=== PATIENT | male | born 1950 | race Caucasian/White ===

== ENCOUNTER 2016-09-22 13:39 | Inpatient (IN) | payer MEDICARE, OTHER ==
[~2016-09-22] VITALS: Ht 175.3 cm; Wt 49.1 kg
[~2016-09-22 13:39] MED LIST: HCTZ; LISINOPRIL10 MG PO; PERCOCET 325 MG1 TA2 PO
[2016-09-22 14:45] LABS: HEMATOCRIT 40.7 % (42.0-52.0); HEMOGLOBIN 13.3 g/dl (13.5-18.0); MEAN CELL VOLUME 100 fl (80.0-100.0); MEAN CORPUSCULAR HEMOGLOBIN 33 pg (27.0-31.0); MEAN CORPUSCULAR HGB CONC 33 g/dl (33.0-37.0); PLATELET COUNT 298 K/mm3 (130-400); RED BLOOD COUNT 4.07 M/mm3 (4.20-5.60); WHITE BLOOD COUNT 17.6 K/mm3 (4.8-10.8)
[2016-09-22 14:46] LABS: ADD PATHOLOGY DIFF REVIEW NO
[2016-09-22 14:50] LABS: INR 1.1 (0.8-3.0); PROTHROMBIN TIME 12.3 SECONDS (9.7-12.8)
[2016-09-22 14:52] LABS: PARTIAL THROMBOPLASTIN TIME 29.3 SECONDS (26.0-37.0)
[2016-09-22 14:59] LABS: ADJUSTED CALCIUM 9.2 mg/dL (8.4-10.2); ALBUMIN 4.2 gm/dL (3.5-5.0); BILIRUBIN,TOTAL 1.1 mg/dL (0.0-1.0); CALCIUM 9.4 mg/dL (8.4-10.2); CREATININE, serum 0.5 mg/dL (0.66-1.25); POTASSIUM 4.6 mmol/L (3.4-5.0); TOTAL PROTEIN 7.4 gm/dL (6.4-8.2)
[2016-09-22 15:06] LABS: ARTERIAL BLD GAS O2 SATURATION 96.6 % (92-100); ARTERIAL BLD GAS TCO2 CT 41.4; ARTERIAL BLOOD GAS BASE EXCESS 11.8 (-2-2); ARTERIAL BLOOD GAS HCO3 39.4 meq/L (22-26); ARTERIAL BLOOD GAS PO2 87.4 mmHg (80-100); OXYHEMOGLOBIN 95.5 %
[2016-09-22 15:07] LABS: BAND 46 % (0-10); NEUTROPHILS 50 % (42.0-75.2); PLATELET ESTIMATE NORMAL (NORMAL); TOTAL CELLS COUNTED 100
[2016-09-22 15:08] LABS: ATS? YES
[2016-09-22 15:11] LABS: TROPONIN-I 0.021 ng/mL (0.000-0.034)
[2016-09-22] MEDS ORDERED: NORVASC 5MG5 MG/TAB PO (15:22)
[2016-09-22] MEDS ORDERED: LIORESAL 1010 MG/TAB PO ×2 (15:23)
[2016-09-22] MEDS ORDERED: MOBIC15 MG PO (15:24)
[2016-09-22] MEDS ORDERED: PROTONIX40 MG/Pack PO (15:31)
[2016-09-22 15:52] LABS: PH 8 (5-8); SQUAMOUS EPITHELIAL None Seen /hpf; URINE APPEARANCE Clear; URINE BACTERIA None Seen /hpf; URINE BILIRUBIN Negative (NEGATIVE); URINE BLOOD Negative (NEGATIVE); URINE COLOR Yellow; URINE GLUCOSE Negative (NEGATIVE); URINE KETONE Negative (NEGATIVE); URINE UROBILINOGEN Negative (NEGATIVE); URINE WBC 0-2 /hpf
[2016-09-22 17:13] VITALS: BP 108/57; PULSE 85; TEMP 97.9
[2016-09-22 21:30] VITALS: BP 123/47; PULSE 91; TEMP 98.2
[2016-09-23] VITALS (7 sets, daily range): BP systolic 115–138; BP diastolic 57–78; PULSE 74–100; TEMP 97.6–98.6
[2016-09-23 06:52] LABS: HEMATOCRIT 38.8 % (42.0-52.0); HEMOGLOBIN 12.7 g/dl (13.5-18.0); MEAN CELL VOLUME 100 fl (80.0-100.0); MEAN CORPUSCULAR HEMOGLOBIN 33 pg (27.0-31.0); MEAN CORPUSCULAR HGB CONC 33 g/dl (33.0-37.0); MEAN PLATELET VOLUME 10.7 fl (7.4-10.4); PLATELET COUNT 284 K/mm3 (130-400); RED BLOOD COUNT 3.87 M/mm3 (4.20-5.60); REDCELL DISTRIBUTION WIDTH-CV 12.1 % (11.5-14.5); WHITE BLOOD COUNT 15.3 K/mm3 (4.8-10.8)
[2016-09-23 07:01] LABS: ADD PATHOLOGY DIFF REVIEW NO
[2016-09-23 08:42] LABS: BAND 17 % (0-10); NEUTROPHILS 75 % (42.0-75.2); PLATELET ESTIMATE NORMAL (NORMAL); TOTAL CELLS COUNTED 100
[2016-09-24 03:01] VITALS: BP 114/60; PULSE 92; TEMP 97.4
[2016-09-24 07:59] LABS: HEMATOCRIT 38.4 % (42.0-52.0); HEMOGLOBIN 12.5 g/dl (13.5-18.0); MEAN CELL VOLUME 103 fl (80.0-100.0); MEAN CORPUSCULAR HEMOGLOBIN 33 pg (27.0-31.0); MEAN CORPUSCULAR HGB CONC 33 g/dl (33.0-37.0); MEAN PLATELET VOLUME 10.8 fl (7.4-10.4); PLATELET COUNT 262 K/mm3 (130-400); RED BLOOD COUNT 3.74 M/mm3 (4.20-5.60); REDCELL DISTRIBUTION WIDTH-CV 12.3 % (11.5-14.5); WHITE BLOOD COUNT 13.8 K/mm3 (4.8-10.8)
[2016-09-24 08:11] LABS: ADD PATHOLOGY DIFF REVIEW NO
[2016-09-24 08:30] VITALS: BP 139/68; PULSE 90; TEMP 98.1
[2016-09-24 09:34] LABS: BAND 25 % (0-10); EOSINOPHIL 1 % (0-4); HYPOCHROMIA 1+; NEUTROPHILS 66 % (42.0-75.2); PLATELET ESTIMATE NORMAL (NORMAL); TOTAL CELLS COUNTED 100
[2016-09-24 12:02] VITALS: BP 126/55; PULSE 88; TEMP 97.9
[2016-09-24 12:44] LABS: ADJUSTED CALCIUM 8.9 mg/dL (8.4-10.2); ALBUMIN 3.5 gm/dL (3.5-5.0); BILIRUBIN,TOTAL 0.6 mg/dL (0.0-1.0); CALCIUM 8.5 mg/dL (8.4-10.2); CREATININE, serum 0.48 mg/dL (0.66-1.25); PHOSPHOROUS 2.7 mg/dL (2.5-4.5); POTASSIUM 3.1 mmol/L (3.4-5.0); TOTAL PROTEIN 6.5 gm/dL (6.4-8.2)
[2016-09-24 17:30] VITALS: BP 109/58; PULSE 85; TEMP 98.7
[2016-09-24 21:05] VITALS: BP 123/68; PULSE 83; TEMP 97.6
[2016-09-25 00:12] VITALS: BP 138/59; PULSE 100
[2016-09-25 07:36] VITALS: BP 122/58; PULSE 85; TEMP 97.8
[2016-09-25 11:04] VITALS: BP 131/68; PULSE 104; TEMP 98
[2016-09-25 15:24] VITALS: BP 128/62; PULSE 88; TEMP 98.8
[2016-09-25 20:50] VITALS: BP 121/59; PULSE 84; TEMP 98.6
[2016-09-25 22:37] VITALS: BP 158/73; PULSE 82; TEMP 98.7
[2016-09-26 02:32] VITALS: BP 138/67; PULSE 92; TEMP 97.9
[2016-09-26 07:41] LABS: ADJUSTED CALCIUM 9.2 mg/dL (8.4-10.2); ALBUMIN 3.4 gm/dL (3.5-5.0); BILIRUBIN,TOTAL 0.7 mg/dL (0.0-1.0); CALCIUM 8.7 mg/dL (8.4-10.2); CREATININE, serum 0.45 mg/dL (0.66-1.25); MAGNESIUM 2.2 mg/dL (1.6-2.3); PHOSPHOROUS 2.6 mg/dL (2.5-4.5); POTASSIUM 3.8 mmol/L (3.4-5.0); TOTAL PROTEIN 6.3 gm/dL (6.4-8.2)
[2016-09-26 07:56] VITALS: BP 130/74; PULSE 81; TEMP 98.8
[2016-09-26 11:20] VITALS: BP 143/74; PULSE 91; TEMP 98.5
[2016-09-26 15:11] VITALS: BP 123/62; PULSE 74; TEMP 98.1
[2016-09-26 19:42] VITALS: BP 137/73; PULSE 84; TEMP 97.1
[2016-09-26 22:51] VITALS: BP 124/61; PULSE 91; TEMP 98.3
[2016-09-27 03:19] VITALS: BP 147/77; PULSE 94; TEMP 97.9
[2016-09-27 07:28] VITALS: BP 134/66; PULSE 85; TEMP 97.9
[2016-09-27] MEDS ORDERED: AUGMENTIN 250150 ML PEG (10:22)
[2016-09-27] MEDS ORDERED: ROBITUSSIN100 MG/5 M PO (10:29)
[2016-09-27] MEDS ORDERED: PROAIR HFA0.09 MG/AC IH (10:29)
[2016-09-27 11:23] VITALS: BP 144/70; PULSE 90; TEMP 98.2
[2016-09-27] MEDS ORDERED: IPRATROPIUM BROM3 M1 IH (11:58)
== END 2016-09-27 14:36 | disposition home or self-care (01) | DRG 178 ==
LOC: COL.ER 13:39 → MEDICAL 15:45
PROVIDERS: Emergency Medicine; Internal Medicine; Physician Assistant
DX: J69.0 Pneumonitis due to inhalation of food and vomit (principal); E44.0 Moderate protein-calorie malnutrition; Z68.1 Body mass index [BMI] 19.9 or less, adult; J96.11 Chronic respiratory failure with hypoxia; J44.1 Chronic obstructive pulmonary disease with (acute) exacerbation; I10 Essential (primary) hypertension; Z85.810 Personal history of malignant neoplasm of tongue; Z85.21 Personal history of malignant neoplasm of larynx; Z85.828 Personal history of other malignant neoplasm of skin; F17.210 Nicotine dependence, cigarettes, uncomplicated; K21.0 Gastro-esophageal reflux disease with esophagitis
CPT/HCPCS: OP; 99223-AI; 99232-AI; 99233-AI; 99239; G0378; J1650; J2543; J7030; J7050

== ENCOUNTER 2017-02-06 14:50 | Emergency (ER) | payer MEDICARE, OTHER ==
[~2017-02-06] VITALS: Ht 175.3 cm; Wt 47.7 kg
[~2017-02-06 14:50] MED LIST changes: +AUGMENTIN 250150 ML PEG; +IPRATROPIUM BROM3 M1 IH; +LIORESAL 1010 MG/TAB PO; +MOBIC15 MG PO; +NORVASC 5MG5 MG/TAB PO; +PROAIR HFA0.09 MG/AC IH; +PROTONIX40 MG/Pack PO; +ROBITUSSIN100 MG/5 M PO
[2017-02-06 14:56] VITALS: TEMP 97.4
[2017-02-06 16:45] VITALS: BP 126/72; PULSE 84
== END 2017-02-06 16:53 | disposition home or self-care (01) ==
LOC: COL.ER 14:50
DX: K94.23 Gastrostomy malfunction (principal)

== ENCOUNTER 2017-05-17 23:45 | Inpatient (IN) | payer MEDICARE, OTHER ==
[~2017-05-17] VITALS: Ht 175.2 cm; Wt 47.6 kg
[2017-05-18] VITALS (241 sets, daily range): BP systolic 113–129; BP diastolic 63–77; PULSE 81–98; TEMP 96.9–98.6; O2SAT 76–100
[2017-05-18 00:06] LABS: MEAN CELL VOLUME 92 fl (80.0-100.0); MEAN CORPUSCULAR HGB CONC 31 g/dl (33.0-37.0); MEAN PLATELET VOLUME 10.7 fl (7.4-10.4); PLATELET COUNT 436 K/mm3 (130-400); RED BLOOD COUNT 3.85 M/mm3 (4.20-5.60); REDCELL DISTRIBUTION WIDTH-CV 15.8 % (11.5-14.5)
[2017-05-18 00:09] LABS: HEMATOCRIT 35.4 % (42.0-52.0); HEMOGLOBIN 10.8 g/dl (13.5-18.0); MEAN CORPUSCULAR HEMOGLOBIN 28 pg (27.0-31.0)
[2017-05-18 00:14] LABS: ALBUMIN 4.2 gm/dL (3.5-5.0); BILIRUBIN,TOTAL 0.3 mg/dL (0.0-1.0); CALCIUM 9.9 mg/dL (8.4-10.2); CREATININE, serum 0.64 mg/dL (0.66-1.25); TOTAL PROTEIN 7.5 gm/dL (6.4-8.2)
[2017-05-18 00:15] LABS: INR 1.1 (0.8-3.0); POTASSIUM 5.8 mmol/L (3.4-5.0); PROTHROMBIN TIME 12.6 SECONDS (9.7-12.8)
[2017-05-18 00:15] LABS: ARTERIAL BLD GAS O2 SATURATION 93.8 % (92-100); ARTERIAL BLD GAS TCO2 CT 38.2; ARTERIAL BLOOD GAS HCO3 36.4 meq/L (22-26); ARTERIAL BLOOD GAS PCO2 59.1 mmHg (35-45); ARTERIAL BLOOD GAS pH 7.41 (7.35-7.45)
[2017-05-18 00:18] LABS: PARTIAL THROMBOPLASTIN TIME 19.4 SECONDS (26.0-37.0)
[2017-05-18 00:25] LABS: BAND 15 % (0-10); LYMPHOCYTE 3 % (20.0-51.0); NEUTROPHILS 79 % (42.0-75.2)
[2017-05-18 00:26] LABS: ANISOCYTOSIS 3+; HYPOCHROMIA 3+; MICROCYTOSIS 2+
[2017-05-18 00:30] LABS: INFLUENZA A NEGATIVE; INFLUENZA B NEGATIVE
[2017-05-18 00:32] LABS: TROPONIN-I 0.045 ng/mL (0.000-0.034)
[2017-05-18 02:37] LABS: COLLECTION METHOD CLEAN CATCH
[2017-05-18 02:42] LABS: PH 6 (5-8); SQUAMOUS EPITHELIAL None Seen /hpf; URINE APPEARANCE Clear; URINE BACTERIA None Seen /hpf; URINE BILIRUBIN Negative (NEGATIVE); URINE BLOOD Negative (NEGATIVE); URINE COLOR Straw; URINE GLUCOSE Negative (NEGATIVE); URINE KETONE Negative (NEGATIVE); URINE LEUKOCYTE ESTERASE Negative (NEGATIVE); URINE NITRATE Negative (NEGATIVE); URINE PROTEIN(semi-quant) Negative (NEGATIVE); URINE RBC 0-2 /hpf; URINE UROBILINOGEN Negative (NEGATIVE)
[2017-05-18] MEDS ORDERED: NEXIUM ORA40 MG/Pack PEG (04:09)
[2017-05-18] MEDS ORDERED: NORCO 325 MG-51 TAB PO ×2 (04:11→04:12)
[2017-05-18] MEDS ORDERED: SILACE150 MG/15 PO (04:11)
[2017-05-18] MEDS ORDERED: XALATAN EYE DROPS OU (04:14)
[2017-05-18] MEDS ORDERED: SINGULAIR 5M5 MG/TAB PO (04:14)
[2017-05-19] VITALS (436 sets, daily range): BP systolic 112–148; BP diastolic 60–79; PULSE 68–108; TEMP 97–98.6; O2SAT 80–98
[2017-05-20 05:11] VITALS: BP 139/73; PULSE 101; TEMP 98.9
[2017-05-20 07:54] VITALS: BP 123/71; PULSE 95; TEMP 98.3
[2017-05-20 11:37] VITALS: BP 122/65; PULSE 105; TEMP 98.2
[2017-05-20 16:16] VITALS: BP 127/70; PULSE 101; TEMP 98
[2017-05-20 21:30] VITALS: BP 130/62; PULSE 98; TEMP 98.4
[2017-05-20 23:57] VITALS: BP 138/89; PULSE 110; TEMP 98.3
[2017-05-21 03:45] VITALS: BP 126/70; PULSE 93; TEMP 98.2
[2017-05-21 07:24] VITALS: BP 123/70; PULSE 89; TEMP 98.3
[2017-05-21 11:02] VITALS: BP 130/65; PULSE 102; TEMP 97.7
[2017-05-21 15:36] VITALS: BP 132/67; PULSE 106; TEMP 98.2
[2017-05-21 21:13] VITALS: BP 143/70; PULSE 100; TEMP 98.3
[2017-05-22] VITALS (7 sets, daily range): BP systolic 113–155; BP diastolic 62–80; PULSE 95–115; TEMP 98–99.2
[2017-05-23] VITALS (9 sets, daily range): BP systolic 117–164; BP diastolic 71–90; PULSE 92–105; TEMP 97.2–98.8
[2017-05-24 04:46] VITALS: PULSE 96
[2017-05-24 07:44] VITALS: BP 136/74; PULSE 91; TEMP 98.1
[2017-05-24 12:00] VITALS: BP 152/77; PULSE 93; TEMP 98.3
[2017-05-24 16:00] VITALS: BP 126/81; PULSE 94; TEMP 97.4
[2017-05-24 20:21] VITALS: BP 124/70; PULSE 97; TEMP 98.4
[2017-05-25 01:14] VITALS: BP 128/77; PULSE 99; TEMP 98.2
[2017-05-25 04:50] VITALS: BP 138/65; PULSE 103
[2017-05-25 08:11] LABS: MEAN CELL VOLUME 94 fl (80.0-100.0); MEAN CORPUSCULAR HGB CONC 29 g/dl (33.0-37.0); MEAN PLATELET VOLUME 10.1 fl (7.4-10.4); PLATELET COUNT 501 K/mm3 (130-400); RED BLOOD COUNT 3.54 M/mm3 (4.20-5.60); REDCELL DISTRIBUTION WIDTH-CV 15.6 % (11.5-14.5)
[2017-05-25 08:13] LABS: HEMATOCRIT 33.1 % (42.0-52.0); HEMOGLOBIN 9.7 g/dl (13.5-18.0); MEAN CORPUSCULAR HEMOGLOBIN 27 pg (27.0-31.0)
[2017-05-25 08:15] LABS: CALCIUM 9.2 mg/dL (8.4-10.2); CREATININE, serum 0.46 mg/dL (0.66-1.25); POTASSIUM 4.6 mmol/L (3.4-5.0)
[2017-05-25 08:48] VITALS: BP 141/67; PULSE 95; TEMP 98.4
[2017-05-25] MEDS ORDERED: LEVASOLN PEG (09:30)
[2017-05-25 10:42] LABS: BAND 21 % (0-10); BASOPHIL 1 % (0-2); DOHLE BODIES PRESENT; EOSINOPHIL 5 % (0-4); LYMPHOCYTE 5 % (20.0-51.0); NEUTROPHILS 68 % (42.0-75.2); TOXIC GRANULATION PRESENT
[2017-05-25 10:43] LABS: PLATELET ESTIMATE INCREASED (NORMAL)
[2017-05-25] MEDS ORDERED: ANTI-FUNGAL1% TP (10:45)
[2017-05-25] MEDS ORDERED: HYDROCORTISONE30 G3 TP (10:45)
[2017-05-25 12:17] VITALS: BP 128/76; PULSE 89; TEMP 98.7
== END 2017-05-25 19:30 | disposition home health service (06) | DRG 166 ==
LOC: COL.ER 23:45 → MEDICAL 05-18 02:36 → ICU 05-18 02:36 → MEDICAL 05-19 14:29
PROVIDERS: Emergency Medicine; Internal Medicine Pulmonary Disease; Physician Assistant
PROC: 0B9B8ZZ Drainage of Left Lower Lobe Bronchus, Via Natural or Artificial Opening Endoscopic (ICD-10-PCS; 2017-05-23)
PROC: 0B958ZZ Drainage of Right Middle Lobe Bronchus, Via Natural or Artificial Opening Endoscopic (ICD-10-PCS; 2017-05-23)
PROC: 0B968ZZ Drainage of Right Lower Lobe Bronchus, Via Natural or Artificial Opening Endoscopic (ICD-10-PCS; 2017-05-23)
PROC: 0B9H8ZZ Drainage of Lung Lingula, Via Natural or Artificial Opening Endoscopic (ICD-10-PCS; principal; 2017-05-23 09:30)
DX: J69.0 Pneumonitis due to inhalation of food and vomit (principal); J96.01 Acute respiratory failure with hypoxia; I21.A1 Myocardial infarction type 2; E43 Unspecified severe protein-calorie malnutrition; Z68.1 Body mass index [BMI] 19.9 or less, adult; I10 Essential (primary) hypertension; J44.9 Chronic obstructive pulmonary disease, unspecified; Z85.810 Personal history of malignant neoplasm of tongue; Z66 Do not resuscitate; Z93.1 Gastrostomy status
CPT/HCPCS: 99223; 99232-AI; 99233-AI; 99239; J0456; J0610; J1650; J1956; J2185; J2543; J2704; J2930; J3370; J7030; J7040; J7050; Q9967

== ENCOUNTER 2017-07-13 04:15 | Emergency (ER) | payer OTHER ==
[~2017-07-13] VITALS: Ht 175.3 cm; Wt 45.9 kg
[~2017-07-13 04:15] MED LIST changes: +ANTI-FUNGAL1% TP; +HYDROCORTISONE30 G3 TP; +LEVASOLN PEG; +NEXIUM ORA40 MG/Pack PEG; +NORCO 325 MG-51 TAB PO; +SILACE150 MG/15 PO; +SINGULAIR 5M5 MG/TAB PO; +XALATAN EYE DROPS OU
[2017-07-13 04:22] VITALS: BP 175/100
[2017-07-13 05:03] VITALS: PULSE 85
== END 2017-07-13 05:00 | disposition home or self-care (01) ==
LOC: COL.ER 04:15
DX: K94.23 Gastrostomy malfunction (principal); I10 Essential (primary) hypertension; G89.29 Other chronic pain; M54.9 Dorsalgia, unspecified; Z85.810 Personal history of malignant neoplasm of tongue; Z87.891 Personal history of nicotine dependence; Z98.890 Other specified postprocedural states; Z79.52 Long term (current) use of systemic steroids